=== PATIENT | male | born 1945 | race Caucasian/White ===

== ENCOUNTER → 2021-03-04 | Day surgery (SDC) | payer OTHER ==
[~2021-03-04] VITALS: Ht 175.2 cm; Wt 68.0 kg
[~2021-03-04] MED LIST: HALCION0.25 MG PO; KEFLEX500 MG PO; MOTRIN800 MG PO
[2021-03-04 07:58] VITALS: BP 151/94
[2021-03-04 08:34] VITALS: BP 113/77
[2021-03-04 08:48] VITALS: BP 115/75
[2021-03-04 09:05] VITALS: BP 117/74
== END | disposition home or self-care (01) ==
LOC: SDC 02-28 08:45
PROVIDERS: ATTEND Surgery
DX: Z12.11 Encounter for screening for malignant neoplasm of colon (principal); Z86.010 Personal history of colon polyps; K57.30 Diverticulosis of large intestine without perforation or abscess without bleeding; M19.90 Unspecified osteoarthritis, unspecified site; G47.00 Insomnia, unspecified; Z79.899 Other long term (current) drug therapy; Z98.890 Other specified postprocedural states